=== PATIENT | female | born 1990 | race Caucasian/White ===

== ENCOUNTER 2016-03-10 10:34 | Emergency (ER) | payer BC ==
[2016-03-10 11:05] VITALS: BP 143/73
--- NOTE | 2016-03-10 11:12 | UC ---
Skin Complaint HPI - HPI Summary HPI Summary: noticed a circular rash on inner aspect of right buttock and has right hip and knee pain (no trauma) fearful she has Lyme Disease--no known tick bite - History of Current Complaint Chief Complaint: UCSkin Time Seen by Provider: 03/10/16 11:01 Stated Complaint: TICK BITE Hx Obtained From: Patient Hx Last Menstrual Period: 03/03/16 ?: No Onset/Duration: Sudden Onset, Lasting Days, Still Present Timing: Constant Onset Severity: Mild Current Severity: Mild Pain Intensity: 3 Pain Scale Used: 0-10 Numeric Location: Diffuse - buttock and right hip achey Aggravating: Nothing Alleviating: Nothing Associated Signs & Symptoms: Positive: Negative - Allergy/Home Medications Allergies/Adverse Reactions: Allergies Allergy/AdvReac Type Severity Reaction Status Date / Time No Known Allergies Allergy Verified 10/06/14 15:31 Home Medications: Home Medications Ibuprofen [Ibuprofen 200 MG] 03/10/16 [History] Review of Systems Constitutional: Negative Skin: Rash - 3 cm red dry ring with out bulls eye (appears fungal) Eyes: Negative ENT: Negative Respiratory: Negative Cardiovascular: Negative Gastrointestinal: Negative Genitourinary: Negative Motor: Negative Neurovascular: Negative Musculoskeletal: Arthralgia - c/o right hip pain for several months Neurological: Negative Psychological: Negative All Other Systems Reviewed And Are Negative: Yes PMH/Surg Hx/FS Hx/Imm Hx Previously Healthy: Yes Endocrine History Of: Denies: Diabetes, Thyroid Disease Cardiovascular History Of: Denies: Cardiac Disorders, Hypertension Respiratory History Of: Denies: COPD, Asthma GI/ History Of: Denies: Ulcer - Surgical History Surgical History: None - Family History Known Family History: Positive: None Family History: denies cardio vascular issues in family lineage - Social History Occupation: Unemployed Lives: With Family Alcohol Use: Rare Substance Use Type: Marijuana Smoking Status (MU): Current Every Day Smoker Type: Cigarettes Amount Used/How Often: 1 PPD Household Exposure Type: Cigarettes Cessation Counseling: Patient Advised to Stop Physical Exam Triage Information Reviewed: Yes Appearance: Well-Appearing, No Pain Distress, Obese Vital Signs: Initial Vital Signs Temp 98.3 F 03/10/16 10:58 Pulse 88 03/10/16 10:58 Resp 16 03/10/16 10:58 BP 143/73 03/10/16 10:58 Pulse Ox 100 03/10/16 10:58 Vital Signs Reviewed: Yes Eye Exam: Normal Eyes: Positive: Conjunctiva Clear ENT Exam: Normal ENT: Positive: Normal ENT inspection, Hearing grossly normal, Pharynx normal. Negative: Nasal congestion, Nasal drainage, Tonsillar swelling, Tonsillar exudate, Trismus, Muffled/hoarse voice Neck exam: Normal Neck: Positive: Supple, Nontender, No Lymphadenopathy Respiratory Exam: Normal Respiratory: Positive: Chest non-tender, Lungs clear, Normal breath sounds, No respiratory distress, No accessory muscle use Cardiovascular Exam: Normal Cardiovascular: Positive: RRR, No Murmur, Pulses Normal, Brisk Capillary Refill Musculoskeletal Exam: Normal Musculoskeletal: Positive: Strength Intact, ROM Intact, No Edema Neurological Exam: Normal Neurological: Positive: Alert, Muscle Tone Normal Psychological Exam: Normal Psychological: Positive: Normal Response To Family Skin: Positive: rashes - 3cm dry circular red rash with central clearing --no bulls eye Re-Evaluation - Re-Evaluation First Eval Change: Unchanged - patient very fearful of Lyme disease-- Course/Dx - Course Course Of Treatment: antifungal cream on buttock , Lyme titer may start Doxy and d/c if titer is negative - Differential Diagnoses - Skin Complaint Differential Diagnoses: Cellulitis, Tick Born Illness, Tinea, Urticaria - Diagnoses Provider Diagnoses: Fungal Rash Discharge - Discharge Plan Condition: Stable Disposition: HOME Prescriptions: Clotrimazole (Topical) [Clotrimazole Antifungal] 1 % EX BID #30 gm DOXYcycline CAP(*) [DOXYcycline 100MG CAP(*)] 100 mg PO BID #42 cap Patient Education Materials: Antifungals (On the skin), Lyme Disease (ED) Referrals: [facility] [Provider Group] [facility] [Outside] - 5 Days No Primary Care Phys,NOPCP [Primary Care Provider] - Additional Instructions: I am not convinced that the rash you have is a Bulls Eye Rash From Lyme Disease. Stop the Antibiodics if the test comes back Negative
== END 2016-03-10 11:35 | disposition home or self-care (01) ==
LOC: UCEAST 10:34
DX: B36.9 Superficial mycosis, unspecified (principal); F17.210 Nicotine dependence, cigarettes, uncomplicated
CPT/HCPCS: 86618; 99212; G0463

== ENCOUNTER 2017-04-06 11:20 | Emergency (ER) | payer BC ==
[2017-04-06 13:15] VITALS: BP 118/72
--- NOTE | 2017-04-06 14:16 | UC ---
Respiratory Complaint HPI - HPI Summary HPI Summary: 26 yo female with sore throat /congestion/fever and chills x 2 days myalgias - History of Current Complaint Chief Complaint: UCGeneralIllness Stated Complaint: SORE THROAT, AND EAR ACHE Time Seen by Provider: 04/06/17 13:42 Hx Obtained From: Patient Hx Last Menstrual Period: 03/20/17 Onset/Duration: Gradual Onset, Lasting Days Severity Initially: Moderate Severity Currently: Moderate Pain Intensity: 9 Pain Scale Used: 0-10 Numeric Character: Cough: Nonproductive Aggravating Factors: Nothing Alleviating Factors: Nothing Associated Signs And Symptoms: Positive: Fever, Chills - Allergies/Home Medications Allergies/Adverse Reactions: Allergies Allergy/AdvReac Type Severity Reaction Status Date / Time No Known Allergies Allergy Verified 04/06/17 13:15 Home Medications: Home Medications Escitalopram Oxalate [Lexapro 10 mg] 10 mg PO DAILY 04/06/17 [History Confirmed 04/06/17] PMH/Surg Hx/FS Hx/Imm Hx Previously Healthy: Yes - Surgical History Surgical History: None Surgery Procedure, Year, and Place: denies - Family History Known Family History: Positive: Hypertension Family History: denies cardio vascular issues in family lineage - Social History Alcohol Use: Rare Substance Use Type: Marijuana Smoking Status (MU): Current Every Day Smoker Type: Cigarettes Amount Used/How Often: 1 PPD Household Exposure Type: Cigarettes Review of Systems Constitutional: Fever, Chills Skin: Negative Eyes: Negative ENT: Sore Throat Respiratory: Negative Cardiovascular: Negative Gastrointestinal: Negative Genitourinary: Negative Motor: Negative Neurovascular: Negative Musculoskeletal: Negative Neurological: Negative Psychological: Negative Is Patient Immunocompromised?: No All Other Systems Reviewed And Are Negative: Yes Physical Exam Triage Information Reviewed: Yes Appearance: Well-Appearing, No Pain Distress, Well-Nourished Vital Signs: Initial Vital Signs Temp 98.3 F 04/06/17 13:10 Pulse 94 04/06/17 13:10 Resp 18 04/06/17 13:10 BP 118/72 04/06/17 13:10 Pulse Ox 98 04/06/17 13:10 Vital Signs Reviewed: Yes Eyes: Positive: Conjunctiva Clear ENT: Positive: Tonsillar swelling, Tonsillar exudate Neck: Positive: Supple, Nontender, Enlarged Nodes @ - ant cervical Respiratory: Positive: Lungs clear, Normal breath sounds, No respiratory distress, No accessory muscle use Cardiovascular: Positive: RRR, No Murmur, Pulses Normal Musculoskeletal: Positive: ROM Intact, No Edema Neurological: Positive: Alert, Muscle Tone Normal Psychological Exam: Normal Skin Exam: Normal UC Diagnostic Evaluation - Laboratory O2 Sat by Pulse Oximetry: 98 - normal/not hypoxic Respiratory Course/Dx - Course Course Of Treatment: Influenza (-). strep invalid x 2 will send culture - Differential Dx/Diagnosis Provider Diagnoses: acute exudative tonsillitis Discharge - Discharge Plan Condition: Stable Disposition: HOME Prescriptions: Cephalexin CAP* [Keflex CAP*] 500 mg PO BID #20 cap Patient Education Materials: Tonsillitis (ED) Referrals: No Primary Care Phys,NOPCP [Primary Care Provider] - Additional Instructions: recheck in 3-4 days if not better
== END 2017-04-06 14:20 | disposition home or self-care (01) ==
LOC: UCEAST 11:20
DX: J03.90 Acute tonsillitis, unspecified (principal); F17.210 Nicotine dependence, cigarettes, uncomplicated
CPT/HCPCS: 87070; 87502; 99212; G0463

== ENCOUNTER 2019-03-08 10:22 | Emergency (ER) | payer SELFPAY ==
[2019-03-08] MEDS ORDERED: NS 0.9% 1000 ML** 1,000 ML IV ONE (11:22)
[2019-03-08] MEDS ORDERED: Metoclopramide IV* 5 MG/ML 2 ML VIAL IV ONE (11:22)
--- NOTE | 2019-03-08 11:27 | ED ---
Complex/Multi-Sys Presentation - HPI Summary HPI Summary: 28 y/o female presented to [facility] complaining of nausea present for 2-3 weeks. Pt believes this is morning sickness because she has taken home tests that have returned positive. She has no diarrhea or abdominal pain, but she has been constipated, vomiting upon food/fluid intake, and had decreased urine output. She notes that she is unable to keep fluids fluids down. She has not been to the [facility] yet, but this would be her first . - History Of Current Complaint Chief Complaint: EDNauseaVomitDiarrh Time Seen by Provider: 03/08/19 10:58 Hx Obtained From: Patient Onset/Duration: Lasting Weeks, Still Present Timing: Weeks Severity Currently: None Location: Negative Aggravating Factor(s): nothing Alleviating Factor(s): nothing Associated Signs And Symptoms: Positive: Nausea, Vomiting - upon intake, Decreased Oral Intake, Other - constipation. Negative: Diarrhea, Abdominal Pain - Allergies/Home Medications Allergies/Adverse Reactions: Allergies Allergy/AdvReac Type Severity Reaction Status Date / Time No Known Allergies Allergy Verified 03/08/19 10:28 Home Medications: Home Medications Vits96/Iron Fum/Folic [ Tablets 27-0.8 mg] 1 tab PO DAILY 03/08 [History Confirmed 03/08/19] PMH/Surg Hx/FS Hx/Imm Hx Endocrine/Hematology History: Denies: Hx Diabetes, Hx Thyroid Disease Cardiovascular History: Denies: Hx Hypertension Respiratory History: Denies: Hx Asthma, Hx Chronic Obstructive Pulmonary Disease (COPD) GI History: Denies: Hx Ulcer Sensory History: Reports: Hx Contacts or Glasses Opthamlomology History: Reports: Hx Contacts or Glasses - Surgical History Surgical History: None Surgery Procedure, Year, and Place: none Infectious Disease History: No Infectious Disease History: Denies: Hx Clostridium Difficile, Hx Hepatitis, Hx Human Immunodeficiency Virus (HIV), Hx of Known/Suspected MRSA, Hx Shingles, Hx Tuberculosis, Hx Known/ Suspected VRE, Hx Known/Suspected VRSA, History Other Infectious Disease, Traveled Outside the [place] in Last 30 Days - Family History Known Family History: Positive: Hypertension Negative: Cardiac Disease Family History: denies cardio vascular issues in family lineage - Social History Alcohol Use: None Hx Substance Use: Yes Substance Use Type: Reports: Marijuana Substance Use Comment - Amount & Last Used: occasionally Hx Tobacco Use: Yes Smoking Status (MU): Light Every Day Tobacco Smoker Type: Cigarettes Amount Used/How Often: 1 PPD Review of Systems Positive: Vomiting, Nausea, Other - constipation, decreased oral intake. Negative: Abdominal Pain, Diarrhea Positive: other - decreased urine output All Other Systems Reviewed And Are Negative: Yes Physical Exam - Summary Physical Exam Summary: Appearance: The patient is obese but in no acute distress and in no acute pain. Skin: The skin is warm and dry, and skin color reflects adequate perfusion. HEENT: The head is normocephalic and atraumatic. The pupils are equal and reactive. The conjunctivae are clear and without drainage. Nares are patent and without drainage. Mouth reveals moist mucous membranes, and the throat is without erythema and exudate. The external ears are intact. The ear canals are patent and without drainage. The tympanic membranes are intact. Neck: The neck is supple with full range of motion and non-tender. There are no carotid bruits. There is no neck vein distension. Respiratory: Chest is non-tender. Lungs are clear to auscultation and breath sounds are symmetrical and equal. Cardiovascular: Heart is regular rate and rhythm. There is no murmur or rub auscultated. There is no peripheral edema and pulses are symmetrical and equal. Abdomen: The abdomen is soft and non-tender. There are normal bowel sounds heard in all four quadrants and there is no organomegaly palpated. Musculoskeletal: There is no back tenderness noted. Extremities are non-tender with full range of motion. There is good capillary refill. There is no peripheral edema or calf tenderness elicited. Neurological: Patient is alert and oriented to person, place and time. The patient has symmetrical motor strength in all four extremities. Cranial nerves are grossly intact. Deep tendon reflexes are symmetrical and equal in all four extremities. Psychiatric: The patient has an appropriate affect and does not exhibit any anxiety or depression. Triage Information Reviewed: Yes Vital Signs On Initial Exam: Initial Vitals Temp Pulse Resp BP Pulse Ox 96.9 F 78 16 138/98 98 03/08/19 10:23 03/08/19 10:23 03/08/19 10:23 03/08/19 10:23 03/08/19 10:23 Vital Signs Reviewed: Yes Procedures - Sedation Patient Received Moderate/Deep Sedation with Procedure: No Diagnostics - Vital Signs Vital Signs Temp Pulse Resp BP Pulse Ox 01/06/20 10:23 96.9 F 78 16 138/98 98 - Laboratory Result Diagrams: 03/08/19 11:42 03/08/19 11:42 Lab Statement: Any lab studies that have been ordered have been reviewed, and results considered in the medical decision making process. Re-Evaluation - Re-Evaluation First Eval Re-Evaluation Time: 13:50 Comment: We discussed results and plan for discharge. Complex Multi-Symp Course/Dx Course Of Treatment: Ms. Devries improved here in the emergency department with fluids and Reglan. I encouraged her to make an appointment with [facility]. She's been holding off because of her insurance. She is applying for Medicaid and they should cover retroactively. I will give her a prescription for doxylamine and vitamin B6. - Diagnoses Provider Diagnoses: Nausea/vomiting in Discharge ED - Sign-Out/Discharge Documenting (check all that apply): Patient Departure - dc - Discharge Plan Condition: Stable Disposition: HOME Prescriptions: Doxylamine Succinate/Vit B6 [Doxylamine-Pyridoxine 10-10 mg] 2 each PO BEDTIME # 30 tablet. Patient Education Materials: Nausea and Vomiting in (ED) Forms: *Work Release Referrals: [facility] [address] [Outside] - 3 Days Additional Instructions: Follow up with your primary care provider in 1-3 days. If you experience new or worsening symptoms please return to the ER. - Billing Disposition and Condition Condition: STABLE Disposition: Home - Attestation Statements Document Initiated by [facility]: Yes Documenting Scribe: Tatiana Og Provider For Whom [facility] is Documenting (Include Credential): Dr. Lester Cornell MD Scribe Attestation: Tatiana Elliott scribed for Dr. Lester Cornell MD on 03/08/19 at 1920. Scribe Documentation Reviewed: Yes Provider Attestation: The documentation as recorded by the Tatiana gottlieb accurately reflects the service I personally performed and the decisions made by me, Dr. Lester Cornell MD Status of Scribjosie Document: Viewed
[2019-03-08 11:59] LABS: ABS Basophils 0.1 10^3/ul (0-0.2); ABS Eosinophils 0.1 10^3/ul (0-0.6); ABS Lymphocytes 2.6 10^3/ul (1.0-4.8); ABS Monocytes 0.6 10^3/ul (0-0.8); Eosinophil % 0.8 %; Hematocrit 45 % (35-47); Hemoglobin 15.3 g/dL (12.0-16.0); Lymphocyte % 19.7 %; Mean Corpuscular HGB Conc 34 g/dL (31-36); Mean Corpuscular Hemoglobin 30 pg (27-31); Mean Corpuscular Volume 87 fL (80-97); Mean Platelet Volume 9.9 fL (7.4-10.4); Platelet Count 220 10^3/uL (150-450); Red Blood Count 5.14 10^6 /uL (3.70-4.87); Red Cell Distribution Width 13 % (10-15); White Blood Count 13.5 10^3/uL (3.5-10.8)
[2019-03-08 12:19] LABS: Albumin 4.3 g/dL (3.2-5.2); Albumin/Globulin Ratio 1.5 (1-3); BUN/Creatinine Ratio 16.2 (8-20); Calcium 9.1 mg/dL (8.6-10.3); EGFR African American 114.8 (>60); EGFR Non-African American 94.9 (>60); Globulin 2.8 g/dL (2-4); Potassium 4.4 mmol/L (3.5-5.0); Total Bilirubin 0.4 mg/dL (0.2-1.0); Total Protein 7.1 g/dL (6.4-8.9)
[2019-03-08 15:42] VITALS: BP 128/76
== END 2019-03-08 15:41 | disposition home or self-care (01) ==
LOC: ED 10:22
DX: O21.9 Vomiting of pregnancy, unspecified (principal); K59.00 Constipation, unspecified; Z3A.00 Weeks of gestation of pregnancy not specified; F17.210 Nicotine dependence, cigarettes, uncomplicated
CPT/HCPCS: 36415; 80053; 84702; 85025; 96361; 96374; 99282; J2765